=== PATIENT | male | born 1960 | race Caucasian/White ===

== ENCOUNTER 2016-10-19 19:20 | Observation (INO) | payer MEDICARE ==
[~2016-10-19] VITALS: Ht 175.3 cm; Wt 117.5 kg
[~2016-10-19 19:20] MED LIST: AMLO10TA2 PO; ASPI-630 PO; CLON0.2T PO; ESOM20CA30 PO; GABA-585 PO; HYDR-2758 PO; HYDR-2869 PO; HYDR12.53 PO; INSU100V8 SQ; LISI40TA PO; METF-620 PO; ZOLP5TAB PO
[2016-10-19 19:40] VITALS: BP 155/109
[2016-10-19] MEDS ORDERED: INSU100V8 SQ (20:07)
[2016-10-19] MEDS ORDERED: HYDR-2869 PO (20:14)
[2016-10-19] MEDS ORDERED: BUDE10.2 IH (20:14)
[2016-10-19] MEDS ORDERED: PROAIR HFA8.5 GM INH (20:14)
[2016-10-19] MEDS ORDERED: DEXTROSE 50% 25 GM / 50ML DISP.SYRIN. IV PRN (20:45)
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
[2016-10-19] MEDS ORDERED: HYDROcodone/APAP 5/325MG 1 TAB TABLET PO PRN (21:15)
[2016-10-19] MEDS ORDERED: ZOLPIDEM 5 MG TABLET. PO PRN (21:15)
[2016-10-19] MEDS: GABAPENTIN 100 MG CAPSULE. PO SCH (22:00)
[2016-10-19] MEDS: predniSONE 20 MG TABLET PO SCH (22:59)
[2016-10-19] MEDS: valACYclovir 500 MG TABLET. PO SCH (23:00)
[2016-10-19] MEDS: INSULIN DETEMIR 300 UNITS/3 ML INSULN.PEN. SQ SCH (23:06)
--- NOTE | 2016-10-19 23:27 | RAD ---
CT scan of the head without contrast 10/19/2016 Clinical History: Severe headaches Technique: Unenhanced, contiguous, 5 mm axial sections were obtained through the head. One or more of the following individualized dose reduction techniques were utilized for this study: 1. Automated exposure control. 2. Adjustment of the mA and/or kV according to patient size. 3. Use of iterative reconstruction technique. . Findings: No previous imaging studies are available for comparison. There is mild generalized parenchymal atrophy. . No acute parenchymal abnormality is seen. No extra-axial fluid collection is noted. No skull fracture is seen. Impression: No acute intracranial abnormality is seen. Electronically signed by: Sebastián Borrego MD (10/19/2016 11:24 PM) [facility]
[2016-10-19 23:55] VITALS: BP 141/83
[2016-10-20 03:20] VITALS: BP 178/112
[2016-10-20 07:00] VITALS: BP 171/116
[2016-10-20] MEDS: INSULIN ASPART 300 UNITS/3 ML INSULN.PEN SQ SCH ×4 (07:30→12:17)
[2016-10-20] MEDS ORDERED: PANTOPRAZOLE 40 MG TABLET.DR. PO SCH (07:30)
[2016-10-20] MEDS ORDERED: ASPIRIN CHEWABLE 81 MG TABLET. PO SCH (08:00)
[2016-10-20] MEDS: ALBUTEROL SULFATE 2.5 MG/3 ML NEBU. NEB SCH ×2 (08:00→12:00)
[2016-10-20] MEDS: valACYclovir 500 MG TABLET. PO SCH (08:24)
[2016-10-20] MEDS: predniSONE 20 MG TABLET PO SCH (08:24)
[2016-10-20] MEDS: GABAPENTIN 100 MG CAPSULE. PO SCH ×2 (08:26→14:00)
[2016-10-20] MEDS: INSULIN DETEMIR 300 UNITS/3 ML INSULN.PEN. SQ SCH (08:30)
[2016-10-20] MEDS ORDERED: amLODIPine BESYLATE 10 MG TABLET PO SCH (09:00)
[2016-10-20] MEDS ORDERED: LISINOPRIL 40 MG TABLET. PO SCH (09:00)
[2016-10-20 11:00] VITALS: BP 165/117
[2016-10-20 14:01] VITALS: BP 165/117
== END 2016-10-20 14:25 | disposition home or self-care (01) ==
LOC: 6 SOUTH 19:20
PROVIDERS: ADMIT Specialist; ATTEND Specialist
DX: R51 Headache (principal); E11.9 Type 2 diabetes mellitus without complications; G47.30 Sleep apnea, unspecified; J44.9 Chronic obstructive pulmonary disease, unspecified; M10.9 Gout, unspecified; Z79.4 Long term (current) use of insulin; Z87.891 Personal history of nicotine dependence
CPT/HCPCS: 70450; 82962; 96372; G0378; G0379; J1815; J7512

== ENCOUNTER → 2017-01-25 | Outpatient (CLI) | payer MEDICAID, MEDICARE ==
[~2017-01-25] MED LIST changes: +ALLO100T PO; +BUDE10.2 IH; +BUPIVACAINE MPF 0.25% 10 ML VIAL. ONE; +INSU100V31 SQ; +PROAIR HFA8.5 GM INH; +methylPREDNISolone ACETATE 40 MG/ML VIAL. ONE
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
== END | disposition home or self-care (01) ==
LOC: PNCL 09:59
PROVIDERS: ATTEND Anesthesiology
DX: M79.1 Myalgia (principal); E11.9 Type 2 diabetes mellitus without complications; I10 Essential (primary) hypertension; J44.9 Chronic obstructive pulmonary disease, unspecified; E11.42 Type 2 diabetes mellitus with diabetic polyneuropathy; Z72.89 Other problems related to lifestyle; Z87.891 Personal history of nicotine dependence; Z86.39 Personal history of other endocrine, nutritional and metabolic disease
CPT/HCPCS: 20553; J1030; J3490

== ENCOUNTER → 2017-02-09 | Outpatient (CLI) | payer MEDICARE ==
--- NOTE | 2017-02-09 20:50 | PAIN ---
DATE OF SERVICE: 02/09/2017 DIAGNOSIS: Myofascial pain with low back pain. HISTORY OF PRESENT ILLNESS: The patient is a 56-year-old male who returns for followup status post trigger point injections on 01/25/2017. The patient did well for about 4-5 days following the injection, then the pain returned after he was on his feet for extended period of time during the weekend. The patient reports that otherwise he was doing quite well. The pain was decreased even in the radiating pain in his lower extremities, right posterior gluteus, posterior thigh and hip, now is returning in the low back bilaterally, mostly in the back itself, but also radiating to posterior gluteus, posterior thighs, again worse on the right side than the left, but present bilaterally. It is a shooting pain, it is aching and sharp, constant, becoming more severe, rates as a 10 on scale of 10 at its worst, 8 on its least and an 8 at average. The patient reports no new motor or sensory deficits, no new bowel or bladder incontinence or other complaints. The patient reports it has been waking him up from sleep at night about every 3-4 hours, where he usually felt better with lying down, but it is beginning to disturb his sleep once again. The patient reports no new motor or sensory deficits or other complaints. PHYSICAL EXAMINATION: VITAL SIGNS: Today, the patient's blood pressure is 160/113, pulse 109, respirations 18, temperature 97.9 degrees Fahrenheit. Height is 5 feet 9 inches, weight is 254 pounds. GENERAL: The patient is awake, alert, oriented, appropriate, very pleasant demeanor. HEENT: Head shows normocephalic, atraumatic. Extraocular movements are intact, symmetrical. Oral cavity: Mucous membranes moist and pink. Dentition is intact. NECK: Shows anterior throat supple without palpable lymphadenopathy noted. Swallow reflex is symmetrical. CHEST: Shows normal on inspection. Breath sounds clear to auscultation bilaterally. HEART: Shows S1 and S2 clear. ABDOMEN: Obese, soft, nontender, nondistended. No palpable organomegaly is noted. BACK: Shows spine grossly in midline. Normal appearing thoracic kyphosis and lumbar lordotic curvature. Lumbar paraspinous muscles show symmetrical on inspection, with palpation shows very firm, very tender, significantly tender rope-like musculature in the middle and lower distribution of paraspinous muscles as well as the inferior thoracic paraspinous muscles bilaterally, somewhat worse once again on the right side than the left, but present bilaterally. Very tender with some radiation into the posterior gluteus with palpation in the low right side of the lumbar paraspinous muscles. Right gluteus itself has some significant rope-like musculature consistent with trigger points as well in the gluteus itself compared to the left, which is moderately tender, but again with trigger points bilaterally. LOWER EXTREMITIES: Show deep tendon reflexes at 1+ in the patellar and tendo calcaneus tendons. Motor exam is strong with 5/5 dorsiflexion, extension, quadriceps and hamstring flexion. Peripheral pulses are 2+. Options were discussed with the patient and the patient's old chart was reviewed as his current medication regimen updated. Current review of systems updated today as well. We will proceed with trigger point injections of the bilateral thoracic paraspinous musculature, bilateral lumbar paraspinous musculature and bilateral gluteus musculature. Risks were again discussed including, but not limited to bleeding, infection, possibility of epidural hematoma, subsequent neurologic compromise, dural punctures, headaches, spinal cord and/or nerve damage, side effects of steroid medication and poor results regarding pain control. The patient understands and wishes to proceed. The patient will return to clinic in approximately 2 weeks for followup. He was counseled on return appointment, activity level and side effects to be aware of. DIAGNOSIS: Myofascial pain. PROCEDURE: Trigger point injections bilateral thoracic paraspinous musculature, bilateral lumbar paraspinous musculature, and bilateral gluteus musculature under sterile prep and drape using local anesthetic. MEDICATIONS INJECTED: A total of 40 mg Depo-Medrol plus 8 mL 0.25% bupivacaine. CONDITION AT DISCHARGE: Stable. The patient tolerated the procedure well, had no complications. EBONY STEVENS MD DR: FERCHO/enzo JOB#: [id number] / [id number]
== END | disposition home or self-care (01) ==
LOC: PNCL 10:45
PROVIDERS: ATTEND Anesthesiology
DX: M79.1 Myalgia (principal); E78.00 Pure hypercholesterolemia, unspecified; I10 Essential (primary) hypertension; J44.9 Chronic obstructive pulmonary disease, unspecified; E11.9 Type 2 diabetes mellitus without complications; Z87.891 Personal history of nicotine dependence; Z86.39 Personal history of other endocrine, nutritional and metabolic disease
CPT/HCPCS: 20553; J1030; J3490

== ENCOUNTER → 2017-04-04 | Day surgery (SDC) | payer MEDICARE ==
[~2017-04-04] MED LIST changes: -ALLO100T PO; -AMLO10TA2 PO; -ASPI-630 PO; -BUDE10.2 IH; -BUPIVACAINE MPF 0.25% 10 ML VIAL. ONE; -CLON0.2T PO; -ESOM20CA30 PO; -GABA-585 PO; -HYDR-2758 PO; -HYDR-2869 PO; -HYDR12.53 PO; -INSU100V31 SQ; -INSU100V8 SQ; +LIDOCAINE 1% PF 2 ML VIAL. ID; -LISI40TA PO; -METF-620 PO; +MIDAZOLAM HCL/PF 2 MG/2 ML VIAL. IV; -PROAIR HFA8.5 GM INH; +PROPOFOL 40 ML IV; -ZOLP5TAB PO; +fentaNYL PF VIAL 100 MCG/2 ML VIAL IV; -methylPREDNISolone ACETATE 40 MG/ML VIAL. ONE
[2017-04-04 11:43] LABS: POC GLUCOSE 127 mg/dL (70-99)
[2017-04-04] MEDS: IV RINGERS,LACTATED 1000ML 1,000 ML IV (11:47)
== END | disposition home or self-care (01) ==
LOC: ENDOS 10:43
DX: Z12.11 Encounter for screening for malignant neoplasm of colon (principal); D12.5 Benign neoplasm of sigmoid colon; E78.00 Pure hypercholesterolemia, unspecified; J44.9 Chronic obstructive pulmonary disease, unspecified; K21.9 Gastro-esophageal reflux disease without esophagitis; F17.200 Nicotine dependence, unspecified, uncomplicated; E11.9 Type 2 diabetes mellitus without complications; Z72.89 Other problems related to lifestyle; Z86.69 Personal history of other diseases of the nervous system and sense organs; Z82.49 Family history of ischemic heart disease and other diseases of the circulatory system; Z79.82 Long term (current) use of aspirin
CPT/HCPCS: 45385; 82962; 88305; J2704

== ENCOUNTER 2019-09-29 06:52 | Emergency (ER) | payer MEDICARE ==
[~2019-09-29] VITALS: Ht 175.3 cm; Wt 114.0 kg
[~2019-09-29 06:52] MED LIST changes: +ALBU2.5V8 INH; +ALLO100T PO; +AMLO10TA8 PO; +ASPI-630 PO; +BUDE10.2 IH; +CLON0.2T PO; +ESOM20CA30 PO; +GABA-585 PO; +HYDR-2761 PO; +HYDR-2869 PO; +HYDR12.575 PO; +INSU100V31 SQ; +INSU100V8 SQ; -LIDOCAINE 1% PF 2 ML VIAL. ID; +LISI-130 PO; +METF10007 PO; -MIDAZOLAM HCL/PF 2 MG/2 ML VIAL. IV; -PROPOFOL 40 ML IV; +ZOLP5TAB PO; -fentaNYL PF VIAL 100 MCG/2 ML VIAL IV
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
[2019-09-29 07:10] VITALS: BP 153/91
[2019-09-29] MEDS ORDERED: BUPIVACAINE MPF 0.25% 10 ML VIAL. IJ ONE (07:15)
[2019-09-29] MEDS ORDERED: DIPH,PERTUSS(ACELL),TET VAC/PF 0.5 ML SYRINGE. VAX IM ONE (07:30)
== END 2019-09-29 08:08 | disposition home or self-care (01) ==
LOC: ER 06:52
DX: S60.453A Superficial foreign body of left middle finger, initial encounter (principal); I10 Essential (primary) hypertension; E11.9 Type 2 diabetes mellitus without complications; J44.9 Chronic obstructive pulmonary disease, unspecified; Z87.891 Personal history of nicotine dependence; X58.XXXA Exposure to other specified factors, initial encounter; Y93.89 Activity, other specified; Y92.89 Other specified places as the place of occurrence of the external cause; Y99.8 Other external cause status
CPT/HCPCS: 64450; 90471; 90715; 99284; J3490